=== PATIENT | male | born 1970 | race Caucasian/White ===

== ENCOUNTER 2018-03-16 15:23 | Observation (INO) | payer OTHER ==
[2018-03-16] MEDS ORDERED: NA CHLORIDE 0.9% 1,000 ML ONE ×2 (15:38→17:36)
[2018-03-16] MEDS ORDERED: ONDANSETRON 4 MG/2 ML VIAL ONE ×2 (15:38→19:57)
[2018-03-16] MEDS ORDERED: MORPHINE 4 MG/ML SYR ONE (15:38)
--- NOTE | 2018-03-16 16:13 | RAD REPORT ---
EXAM DESCRIPTION: CT - Stone Protocol - 03/16/2018 3:46 pm CLINICAL HISTORY: Left flank pain COMPARISON: None. TECHNIQUE: Axial 5 mm thick images were obtained without oral or IV contrast. The [id number] span s the entirety of the system including uppermost abdomen and lung bases. All CT scans are performed using dose optimization technique as appropriate and may include automated exposure control or mA/KV adjustment according to patient size. FINDINGS: Mild left-sided hydronephrosis is present secondary to a 5 mm mid left ureter stone. On a KUB projection the stone is the mid L4 level. More distally the left ureter is decompressed. No other obstructing or nonobstructing calculi. A 5.5 centimeter posterior mid left renal cyst is present. No suspicious renal masses. Isodense masses and pyelonephritis are not excluded on a stone protocol CT scan. No calculi within the contracted urinary bladder. Imaged portions of the liver, spleen and pancreas show no suspicious findings on non-contrast imaging . Liver shows a mild diffuse fatty infiltration pattern. At least 1 gallstone is present within a par tially contracted gallbladder. Active gallbladder process is not suspected. No biliary tree dilatatio n. Minimal fullness of the left adrenal gland is doubtful as being significant. No suspicious bowel findings. Minimal diverticulosis. No hernia, mass or bulky lymphadenopathy noted. No free air, free fluid or inflammatory stranding. No significant bony abnormality. IMPRESSION: Mild hydronephrosis secondary to a 5 mm left mid ureter calculus. Isodense masses and pyelonephritis are not excluded on stone protocol technique.
[2018-03-16 16:17] LABS: Absolute Lymphocytes (CBC) 1.2 K/uL (0.7-4.9); Absolute Monocytes 0.4 K/uL (0.1-1.3); Absolute Neutrophil 16.1 K/uL (1.8-8.0); Basophils % 0.3 % (0-1.3); Eosinophils % 0.1 % (0-4.4); Hematocrit 50.7 % (39.6-49.0); Lymphocytes % 6.9 % (15.3-44.8); MCH 32.3 pg (27.0-35.0); MCV 94.7 fL (80-100); MPV 8.3 fL (7.6-11.3); Monocytes % 2.2 % (3.3-12.3); RBC Red Blood Cell Count 5.35 M/uL (4.33-5.43)
[2018-03-16] MEDS ORDERED: FENTANYL CITR 100 MCG/2 ML ONE (16:21)
[2018-03-16 16:23] LABS: Bicarbonate 26 mEq/L (21-31); Glucose Level 180 mg/dL (65-120); Potassium 4.4 mEq/L (3.6-5.0); Sodium Level 142 mEq/L (135-145)
[2018-03-16 16:24] LABS: BUN Blood Urea Nitrogen 10 mg/dL (6-20)
--- NOTE | 2018-03-16 16:34 | EKG ---
Test Date: 2018-03-16 Test Time: 15:31:05 Shell Trim Operator: SHEBA MEASUREMENT RESULTS: Intervals: Rate: 74 MT: 130 QRSD: 90 QT: 380 QTc: 421 [place]: P: 25 MT: 130 QRS: 2 T: 27 INTERPRETIVE STATEMENTS: Normal sinus rhythm Low voltage QRS Borderline ECG Compared to ECG 04/08/2017 10:08:35 Myocardial infarct finding no longer present Electronically Signed On 03-16-18 16:33:24 CDT by Khurram Ramírez
[2018-03-16] MEDS ORDERED: CEFTRIAXONE/SWI 1gm 1 GM/10 ML SYR ONE (16:36)
--- NOTE | 2018-03-16 16:54 | EDPHYS ---
Physician Documentation [facility] Name: Isaiah Mcgraw Age: 47 yrs Sex: Male : 1970 Arrival Date: 03/16/2018 Time: 15:27 Bed 7 Private MD: ED Physician Farhad Ware HPI: 03/16 15:42 This 47 yrs old Male presents to ER via EMS with complaints of Flank Pain. kb 15:42 The patient complains of pain in the left flank. The pain radiates to the suprapubic kb area. Onset: The symptoms/episode began/occurred today, at 10:30. Modifying factors: The symptoms are alleviated by nothing. the symptoms are aggravated by palpation/percussion. Associated signs and symptoms: Pertinent positives: nausea, vomiting, Pertinent negatives: diarrhea, dizziness, dysuria, fever, urinary frequency, headache, hematuria, pain radiating to the lower extremities. Severity of pain: At its worst the pain was moderate in the emergency department the pain is unchanged. The patient has not experienced similar symptoms in the past. The patient has not recently seen a physician. Historical: - Allergies: 15:31 No Known Allergies; jl7 - Home Meds: 15:36 atorvastatin 40 mg oral tab 1 tab once daily [Active]; clopidogrel 75 mg oral tab 1 tab jl7 once daily [Active]; Invokana 100 mg oral tab 1 tab once daily [Active]; metoprolol tartrate 50 mg Oral tab 1 tab 2 times per day [Active]; metformin 500 mg Oral tab 2 tabs 2 times per day [Active]; 16:07 Lisinopril Oral [Active]; aspirin 81 mg oral TbEC once daily [Active]; jl7 - PMHx: 15:31 Diabetes - NIDDM; Hypertension; Hyperlipidemia; Myocardial infarction; jl7 - PSHx: 16:07 Heart Cath; jl7 - Immunization history:: Adult Immunizations up to date. - Social history:: Smoking status: Patient uses tobacco products, chewing tobacco. ROS: 15:42 Constitutional: Negative for fever, chills, and weight loss, Cardiovascular: Negative kb for chest pain, palpitations, and edema, Respiratory: Negative for shortness of breath, cough, wheezing, and pleuritic chest pain, MS/Extremity: Negative for injury and deformity, Skin: Negative for injury, rash, and discoloration, Neuro: Negative for headache, weakness, numbness, tingling, and seizure. 15:42 Abdomen/GI: Positive for nausea and vomiting. 15:42 : Positive for flank pain. Exam: 15:42 Constitutional: This is a well developed, well nourished patient who is awake, alert, kb and in no acute distress. Head/Face: Normocephalic, atraumatic. Chest/axilla: Normal chest wall appearance and motion. Nontender with no deformity. No lesions are appreciated. Cardiovascular: Regular rate and rhythm with a normal S1 and S2. No gallops, murmurs, or rubs. Normal PMI, no JVD. No pulse deficits. Respiratory: Lungs have equal breath sounds bilaterally, clear to auscultation and percussion. No rales, rhonchi or wheezes noted. No increased work of breathing, no retractions or nasal flaring. Skin: Warm, dry with normal turgor. Normal color with no rashes, no lesions, and no evidence of cellulitis. MS/ Extremity: Pulses equal, no cyanosis. Neurovascular intact. Full, normal range of motion. Neuro: Awake and alert, GCS 15, oriented to person, place, time, and situation. Cranial nerves II-XII grossly intact. Motor strength 5/5 in all extremities. Sensory grossly intact. Cerebellar exam normal. Normal gait. 15:42 Abdomen/GI: Inspection: abdomen appears normal, Bowel sounds: normal, in all quadrants, Palpation: soft, in all quadrants, mild abdominal tenderness, in the suprapubic area. 15:42 Back: CVA tenderness, that is moderate, is noted on the left. Vital Signs: 15:31 BP 126 / 79; Pulse 75; Resp 16 S; Temp 98.3(O); Pulse Ox 97% on R/A; Weight 111.13 kg jl7 (R); Height 5 ft. 9 in. (175.26 cm) (R); Pain 7/10; 16:08 BP 127 / 87; Pulse 79; Resp 16 S; Pulse Ox 97% on R/A; Pain 8/10; jl7 17:00 BP 124 / 85; Pulse 78; Resp 16; Pulse Ox 97% ; jl7 18:00 BP 123 / 83; Pulse 75; Resp 16; Pulse Ox 97% ; jl7 18:45 BP 119 / 75; Pulse 81; Resp 16; Pulse Ox 99% on R/A; jl7 19:43 BP 147 / 90; Pulse 84; Resp 17; Pulse Ox 99% on R/A; mt 15:31 Body Mass Index 36.18 (111.13 kg, 175.26 cm) jl7 MDM: 15:32 Patient medically screened. kb 15:42 Data reviewed: vital signs, nurses notes. Data interpreted: Pulse oximetry: on room air kb is 97 %. Interpretation: normal. 16:52 Counseling: I had a detailed discussion with the patient and/or guardian regarding: the kb historical points, exam findings, and any diagnostic results supporting the discharge/admit diagnosis, lab results, radiology results, the need for further work-up and treatment in the hospital. Physician consultation: Tova Fuentes MD was contacted at 16:53, regarding consult, patient's condition, and will see patient in inpatient room. 17:00 Physician consultation: Carolin Osuna MD was called at 17:00, left message. kb 03/16 15:36 Order name: CBC with Diff; Complete Time: 17:03 kb 03/16 15:36 Order name: Basic Metabolic Panel; Complete Time: 16:30 kb 03/16 15:36 Order name: Urine Microscopic Only; Complete Time: 17:13 kb 03/16 15:36 Order name: CT Stone Protocol; Complete Time: 16:14 kb 03/16 16:28 Order name: CBC Smear Scan; Complete Time: 17:03 EDMS 03/16 16:48 Order name: Urine Dipstick--Ancillary (enter results); Complete Time: 17:08 kb 03/16 16:54 Order name: Abdomen 1 View (KUB) XRAY kb 03/16 17:24 Order name: RAD; Complete Time: 17:25 EDMS 03/16 15:36 Order name: Urine Dipstick-Ancillary (obtain specimen); Complete Time: 18:46 kb 03/16 15:36 Order name: EKG; Complete Time: 15:36 kb 03/16 15:36 Order name: EKG - Nurse/Tech; Complete Time: 16:10 kb Administered Medications: 15:52 Drug: NS 0.9% 1000 ml Route: IV; Rate: 1000 ml; Site: right hand; 7 15:53 Drug: Zofran 4 mg Route: IVP; Site: right hand; jl7 16:10 Follow up: Response: Nausea is decreased jl7 15:55 Drug: morphine 4 mg Route: IVP; Site: right hand; jl7 16:10 Follow up: Response: No adverse reaction; Pain is unchanged, physician notified jl7 16:22 Drug: fentaNYL (PF) 50 mcg Route: IVP; Site: right hand; jl7 17:00 Follow up: Response: No adverse reaction; Pain is decreased jl7 16:40 Drug: Rocephin - (cefTRIAXone) 1 grams Route: IVPB; Infused Over: 2 mins; Site: right jl7 antecubital; 16:42 Follow up: Response: No adverse reaction; IV Status: Completed infusion jl7 18:30 Drug: NS 0.9% 1000 ml Route: IV; Rate: 125 ml/hr; Site: right hand; jl7 20:11 Follow up: IV Status: Infusion continued upon admission ea 20:11 Follow up: Response: No adverse reaction ea Disposition: 03/17 07:51 Co-signature as Attending Physician, Farhad Ware MD I agree with the assessment and mehrdad plan of care. Disposition: 03/16/18 17:22 Hospitalization ordered by Carolin Osuna for Observation. Preliminary diagnosis are Calculus of kidney and ureter, Elevated white blood cell count. - Bed requested for Telemetry/MedSurg (observation). - Status is Observation. ea - Condition is Stable. - Problem is new. - Symptoms are unchanged. UTI on Admission? No Signatures: Dispatcher [employer] EDNJ Alejandra Roach, AIR HOLE DRILLER-C AIR HOLE DRILLER-Farhad Jacobsen MD MD cha Leal, Jahala, RN GAURANG jlVanessa Vallecillo, RN Yas Cooper RN GAURANG morgan
--- NOTE | 2018-03-16 16:54 | ER ---
Nurse's Notes [facility] Name: Isaiah Mcgraw Age: 47 yrs Sex: Male : 1970 Arrival Date: 03/16/2018 Time: 15:27 Bed 7 Private MD: Diagnosis: Calculus of kidney and ureter;Elevated white blood cell count Presentation: 03/16 15:27 Presenting complaint: EMS states: C/O left flank pain that radiate to the groin and jl7 nausea. Pt reports he had a MO that started in the lower back and radiated substernal and to the left arm so we went ahead and gave 324 mg aspirin and 1 Nitro. Transition of care: patient was not received from another setting of care. Onset of symptoms was March 16, 2018. Initial Sepsis Screen: Does the patient meet any 2 criteria? No. Patient's initial sepsis screen is negative. Does the patient have a suspected source of infection? No. Patient's initial sepsis screen is negative. Care prior to arrival: Medication(s) given: ASA, 81 mg, x 4, Nitro x1 IV initiated. 20 GA, in the right hand. 15:27 Method Of Arrival: EMS: [facility] 15:27 Acuity: LASHELL 3 jl7 Triage Assessment: 15:31 General: Appears in no apparent distress. uncomfortable, Behavior is cooperative, jl7 anxious. Pain: Complains of pain in left low back Pain radiates to left lower quadrant Pain currently is 7 out of 10 on a pain scale. EENT: No signs and/or symptoms were reported regarding the EENT system. Neuro: Level of Consciousness is awake, alert, obeys commands, Oriented to person, place, time, situation. Cardiovascular: Heart tones S1 S2 present Patient's skin is warm and dry. Respiratory: Airway is patent Respiratory effort is even, unlabored, Respiratory pattern is regular, symmetrical, Breath sounds are clear bilaterally. GI: Abdomen is round non-distended, Bowel sounds present X 4 quads. Abd is soft and non tender X 4 quads. : Denies burning with urination. Derm: Skin is pink, warm \\T\\ dry. Musculoskeletal: No signs and/or symptoms reported regarding the musculoskeletal system. Historical: - Allergies: 15:31 No Known Allergies; jl7 - Home Meds: 15:36 atorvastatin 40 mg oral tab 1 tab once daily [Active]; clopidogrel 75 mg oral tab 1 tab jl7 once daily [Active]; Invokana 100 mg oral tab 1 tab once daily [Active]; metoprolol tartrate 50 mg Oral tab 1 tab 2 times per day [Active]; metformin 500 mg Oral tab 2 tabs 2 times per day [Active]; 16:07 Lisinopril Oral [Active]; aspirin 81 mg oral TbEC once daily [Active]; jl7 - PMHx: 15:31 Diabetes - NIDDM; Hypertension; Hyperlipidemia; Myocardial infarction; jl7 - PSHx: 16:07 Heart Cath; jl7 - Immunization history:: Adult Immunizations up to date. - Social history:: Smoking status: Patient uses tobacco products, chewing tobacco. Screenin:09 Abuse screen: Denies threats or abuse. Denies injuries from another. Nutritional jl7 screening: No deficits noted. Tuberculosis screening: No symptoms or risk factors identified. Fall Risk IV access (20 points). Total Yoon Fall Scale indicates No Risk (0-24 pts). Assessment: 15:30 General: See triage assessment. jl7 16:10 Reassessment: Pt reports "It still hurts the same." Provider notified, see [facility] for jl7 orders. 17:00 Reassessment: No changes from previously documented assessment. Patient and/or family jl7 updated on plan of care and expected duration. Pain level reassessed. Patient is alert, oriented x 3, equal unlabored respirations, skin warm/dry/pink. 19:29 General: Appears in no apparent distress. Behavior is calm, cooperative, appropriate ea for age. Pain: Denies pain. Neuro: Level of Consciousness is awake, alert, obeys commands, Oriented to person, place, time, situation. Cardiovascular: Patient's skin is warm and dry. Respiratory: Airway is patent Respiratory effort is even, unlabored, Respiratory pattern is regular, symmetrical. GI: Bowel sounds present X 4 quads. : No signs and/or symptoms were reported regarding the genitourinary system. Derm: Skin is pink, warm \\T\\ dry. 20:02 Reassessment: Patient and/or family updated on plan of care and expected duration. Pain ea level reassessed. Patient is alert, oriented x 3, equal unlabored respirations, skin warm/dry/pink. Pt complaining of nausea, zofran 4 mg per IV given pt tolerated well documentation in [facility]. Vital Signs: 15:31 BP 126 / 79; Pulse 75; Resp 16 S; Temp 98.3(O); Pulse Ox 97% on R/A; Weight 111.13 kg jl7 (R); Height 5 ft. 9 in. (175.26 cm) (R); Pain 7/10; 16:08 BP 127 / 87; Pulse 79; Resp 16 S; Pulse Ox 97% on R/A; Pain 8/10; jl7 17:00 BP 124 / 85; Pulse 78; Resp 16; Pulse Ox 97% ; jl7 18:00 BP 123 / 83; Pulse 75; Resp 16; Pulse Ox 97% ; jl7 18:45 BP 119 / 75; Pulse 81; Resp 16; Pulse Ox 99% on R/A; jl7 19:43 BP 147 / 90; Pulse 84; Resp 17; Pulse Ox 99% on R/A; mt 15:31 Body Mass Index 36.18 (111.13 kg, 175.26 cm) 7 ED Course: 15:27 Patient arrived in ED. jl7 15:30 Triage completed. jl7 15:30 Maintain EMS IV. Dressing intact. Good blood return noted. Site clean \\T\\ dry. Gauge \\T\\ jl 7 site: 20 right hand. 15:31 Alejandra Roach F[facility]-C [facility] kb 15:31 Arm band placed on right wrist. jl7 15:32 Farhad Ware MD is Attending Physician. kb 15:37 Eber Espinosa RN is Primary Nurse. jl7 15:40 Initial lab(s) drawn, by ms, sent to lab. jl7 15:46 CT Stone Protocol In Process Unspecified. EDMS 15:46 CT completed. Patient tolerated procedure well. Patient moved back from CT. vm2 15:51 EKG done, by engineering technical writer. reviewed by Alejandra GALDAMEZ. at1 16:09 Patient has correct armband on for positive identification. Bed in low position. Call [facility] light in reach. Side rails up X 1. quality assurance monitor on. Pulse ox on. NIBP on. Warm blanket given. 16:53 Carolin Osuna MD is Hospitalizing Provider. kb 17:12 X-ray completed. Patient tolerated procedure well. Patient moved back from radiology. ml 17:22 Osuna, Carolin, MD is Hospitalizing Provider. kb 19:08 Report given to GAURANG Rowley. jl7 19:31 No provider procedures requiring assistance completed. ea 20:02 Patient admitted, IV remains in place. ea Administered Medications: 15:52 Drug: NS 0.9% 1000 ml Route: IV; Rate: 1000 ml; Site: right hand; jl7 15:53 Drug: Zofran 4 mg Route: IVP; Site: right hand; jl7 16:10 Follow up: Response: Nausea is decreased jl7 15:55 Drug: morphine 4 mg Route: IVP; Site: right hand; jl7 16:10 Follow up: Response: No adverse reaction; Pain is unchanged, physician notified jl7 16:22 Drug: fentaNYL (PF) 50 mcg Route: IVP; Site: right hand; jl7 17:00 Follow up: Response: No adverse reaction; Pain is decreased jl7 16:40 Drug: Rocephin - (cefTRIAXone) 1 grams Route: IVPB; Infused Over: 2 mins; Site: right jl7 antecubital; 16:42 Follow up: Response: No adverse reaction; IV Status: Completed infusion jl7 18:30 Drug: NS 0.9% 1000 ml Route: IV; Rate: 125 ml/hr; Site: right hand; jl7 20:11 Follow up: IV Status: Infusion continued upon admission ea 20:11 Follow up: Response: No adverse reaction ea Outcome: 16:54 Decision to Hospitalize by Provider. kb 17:22 Decision to Hospitalize by Provider. kb 20:01 Admitted to Med/surg accompanied by tech, via wheelchair, room 205, Report called to ea Receiving nurse. 20:01 Condition: stable 20:01 Instructed on the need for admit. 20:10 Patient left the ED. ea Signatures: Dispatcher [employer] EDMS Alejandra Roach, DENICE PHARMACOEPIDEMIOLOGIST-Irina Lira Amanda, scraper loader operator EKG Andrez1 Eber Espinosa, RN RN jl7 Alexa Root 2 Mateus Ariasah Yas Gates, RN RN cathy
[2018-03-16 17:02] LABS: Platelet Estimate ADEQ; Urine White Blood Cell Casts OK
[2018-03-16 17:03] LABS: Blood Morphology Comment NOT SEEN (NOT SEEN)
[2018-03-16 17:03] LABS: Urine Blood 3+ (NEG); Urine Glucose 2+ (NEG); Urine Protein 3+ (NEG); Urine pH 5.5 (5.0-7.0)
[2018-03-16 17:13] LABS: Urine Bacteria 20-50 /HPF (NONE SEEN); Urine Culture Reflex Order REFLEXED; Urine RBC TNTC /HPF (NONE SEEN)
--- NOTE | 2018-03-16 17:24 | RAD REPORT ---
EXAM DESCRIPTION: RAD - Abdomen 1 View (KUB) - 03/16/2018 5:17 pm CLINICAL HISTORY: Abdomen pain. FINDINGS: The bowel gas pattern is unremarkable. A 3 millimeter calculus is present within the left ureter between the left transverse processes of L4 and L5 The calcification the pelvis likely represent phleboliths and prostatic calcifications
[2018-03-16] MEDS ORDERED: ONDANSETRON 4 MG/2 ML VIAL IV PRN (17:47)
[2018-03-16] MEDS ORDERED: ACETAMINOPHEN 500 MG TAB PO PRN (17:47)
[2018-03-16] MEDS ORDERED: NA CHLORIDE 0.9% 1,000 ML IV SCH (18:00)
[2018-03-16] MEDS: NA CHLORIDE 0.9% 1,000 ML IV SCH (20:29)
[2018-03-16] MEDS ORDERED: FENTANYL CITR 100 MCG/2 ML IV PRN (20:29)
[2018-03-16 21:19] VITALS: BMI 38.1
[2018-03-16] MEDS ORDERED: NA CHLORIDE 0.9% 1,000 ML IV ONE (22:02)
[2018-03-16] MEDS ORDERED: HYDROCODONE/APAP 10/325 TAB PO ONE (22:06)
[2018-03-16] MEDS: ONDANSETRON 4 MG/2 ML VIAL IV PRN (22:54)
[2018-03-17] MEDS: FENTANYL CITR 100 MCG/2 ML IV PRN ×5 (01:42→18:55)
[2018-03-17] MEDS: NA CHLORIDE 0.9% 1,000 ML IV SCH ×3 (04:51→20:29)
--- NOTE | 2018-03-17 05:26 | P.HP ---
Certification for Inpatient Patient admitted to: Observation With expected LOS: <2 Midnights Patient will require the following post-hospital care: None Practitioner: I am a practitioner with admitting privileges, knowledge of patient current condition, hospital course, and medical plan of care. 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 He suddenly experienced sharp pain to his left flank. He thought the pain would improve any stopped at a local gas station and got peppermint for nausea as he experienced vomiting on his drive to the gas station. 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 In the emergency room, patient's workup revealed left-sided nephrolithiasis with mild hydronephrosis on the left. Patient was admitted to the hospital for pain control and hydration. Urology has been Consulted. Allergies No Known Allergies Allergy (Verified 03/16/18 21:17) Home Medications: Aspirin [Aspir-Low] 81 mg PO DAILY 04/08/17 Atorvastatin Calcium [Lipitor] 40 mg PO BEDTIME 04/08/17 Canagliflozin [Invokana] 100 mg PO DAILY 04/08/17 Clopidogrel Bisulfate [Plavix] 75 mg PO DAILY 04/08/17 Lisinopril [Zestril] 20 mg PO DAILY 04/08/17 Metformin HCl [Glucophage] 500 mg PO BID 04/08/17 Metoprolol Tartrate 50 mg PO BID 04/08/17 - Past Medical/Surgical History Has patient received pneumonia vaccine in the past: No Diabetic: No -: Diabetes type 2 -: Hypertension -: CAD -: heart catheterization -: cyst removed from the right leg - Family History Mother Medical History: Heart disease, Hypertension, Diabetes, Kidney disease, Other ( see notes) Notes: thyroid disease Father Medical History: Heart disease, Stroke, Cancer Notes: AMYLOIDOSIS - Social History Smoking Status: Never smoker Alcohol use: Yes CD- Drugs: No Caffeine use: Yes Place of Residence: Home Review of Systems 10-point ROS is otherwise unremarkable Physical Examination - Vital Signs Temperature: 99.0 F Blood Pressure: 130/75 Pulse: 94 Respirations: 18 Pulse Ox (%): 95 - Physical Exam General: Alert, In no apparent distress, Oriented x3 HEENT: Atraumatic, PERRLA, Mucous membr. moist/pink, EOMI, Sclerae nonicteric Neck: Supple, 2+ carotid pulse no bruit, No LAD, Without JVD or thyroid abnormality Respiratory: Expiratory wheezes, Rhonchi/gurgles Cardiovascular: Regular rate/rhythm, Normal S1 S2, No murmurs Gastrointestinal: Normal bowel sounds, Soft and benign, Non-distended, No tenderness Musculoskeletal: No clubbing, No swelling, No tenderness Integumentary: No rashes Neurological: Normal gait, Normal speech, Normal strength at 5/5 x4 extr, Normal tone, Sensation intact, Cranial nerves 3-12 intact, Normal affect Lymphatics: No axilla or inguinal lymphadenopathy - Studies Laboratory Data (last 24 hrs) 03/16/18 15:55: Sodium 142, Potassium 4.4, BUN 10, Creatinine 0.71, Glucose 180 H 03/16/18 15:55: WBC 17.8 H, Hgb 17.3, Hct 50.7 H, Plt Count 274 Assessment & Plan - Problems (Diagnosis) (1) Nephrolithiasis Current Visit: Yes Status: Acute (2) Hydronephrosis Current Visit: Yes Status: Acute (3) Urinary tract infection Current Visit: Yes Status: Acute - Plan Plan: 1. Continue with IV hydration 2. Continue with IV antibiotics 3. Continue with pain control 4. NPO 5. Urology consultation; 6. Serial H&H, and we will monitor CBC, BMP, & additional laboratory testing. 7. Strain urine 8. GI and DVT prophylaxis - Advance Directives Does patient have a Living Will: No Does patient have a Durable POA for Healthcare: No - Code Status/Comfort Care Code Status Assessed: Yes Code Status: Full Code Critical Care: No Time Spent Managing PTS Care (In Minutes): 50
[2018-03-17 06:00] LABS: Absolute Lymphocytes (CBC) 3.6 K/uL (0.7-4.9); Absolute Monocytes 1.3 K/uL (0.1-1.3); Absolute Neutrophil 10.5 K/uL (1.8-8.0); Basophils % 0.8 % (0-1.3); Eosinophils % 0.3 % (0-4.4); Hematocrit 45.8 % (39.6-49.0); Lymphocytes % 23.2 % (15.3-44.8); MCH 31.9 pg (27.0-35.0); MCV 94.8 fL (80-100); Monocytes % 8.5 % (3.3-12.3); RBC Red Blood Cell Count 4.83 M/uL (4.33-5.43)
[2018-03-17 07:06] LABS: ALT/SGPT 25 IU/L (10-60); AST/SGOT 21 IU/L (10-42); Albumin 3.6 g/dL (3.2-5.5); Alkaline Phosphatase 65 IU/L (42-121); BUN Blood Urea Nitrogen 11 mg/dL (6-20); Bicarbonate 25 mEq/L (21-31); Glucose Level 122 mg/dL (65-120); Lipase 15 U/L (22-51); Magnesium 1.5 mg/dL (1.8-2.5); Phosphorus 2.9 mg/dL (2.5-4.3); Potassium 3.9 mEq/L (3.6-5.0); Protein, Total 6.5 g/dL (6.0-8.3); Sodium Level 139 mEq/L (135-145)
[2018-03-17] MEDS ORDERED: KCL 20 MEQ/100 mL IVPB 20 MEQ/100 ML BAG IV SCH (08:00)
[2018-03-17] MEDS ORDERED: Magnesium Sulfate 2gm IVPB 2 G/50 ML BAG IV ONE (09:00)
[2018-03-17] MEDS ORDERED: CEFTRIAXONE 1 GM/NS 50 ML 1 GM/50 ML BAG IV SCH (09:00)
[2018-03-17 09:22] LABS: Protime INR 1.09
[2018-03-17] MEDS: LISINOPRIL 20 MG TAB PO SCH (09:46)
[2018-03-17] MEDS: METOPROLOL TAR 50 MG TAB PO SCH ×2 (09:46→21:00)
[2018-03-17] MEDS: CEFTRIAXONE/SWI 1gm 1 GM/10 ML SYR IV SCH (09:47)
[2018-03-17] MEDS ORDERED: MIDAZOLAM HCL 2 MG/2 ML INJ ONE ×2 (12:45→12:56)
[2018-03-17] MEDS ORDERED: FENTANYL CITR 100 MCG/2 ML ONE (12:45)
[2018-03-17] MEDS ORDERED: PROPOFOL 200 MG/20 ML VIAL IV ONE (12:45)
[2018-03-17] MEDS ORDERED: LIDOCAINE 1% MPF 5 ML VIAL ONE (12:45)
[2018-03-17] MEDS ORDERED: GENTAMICIN 80 MG/100 ML BAG 80 MG/100 ML BAG IV ONE (13:08)
[2018-03-17] MEDS ORDERED: NA CHLORIDE 0.9% 1,000 ML ONE (13:08)
[2018-03-17] MEDS ORDERED: ONDANSETRON 4 MG/2 ML VIAL ONE (13:21)
[2018-03-17] MEDS ORDERED: KETOROLAC 30 MG/ML INJ ONE (13:21)
--- NOTE | 2018-03-17 14:56 | RAD REPORT ---
EXAM DESCRIPTION: RAD - Urethrocystogrphy Retrograde - 03/17/2018 2:50 pm CLINICAL HISTORY: Stent placement. COMPARISON: None. FINDINGS: Fluoroscopic imaging of the abdomen is submitted from left-sided ureter stent placement. D etails of the procedure not available.
[2018-03-17] MEDS: ONDANSETRON 4 MG/2 ML VIAL IV PRN ×2 (15:25→21:06)
[2018-03-17] MEDS ORDERED: KETOROLAC 30 MG/ML INJ IV ONE (17:00)
--- NOTE | 2018-03-17 18:13 | P.SSS ---
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 He suddenly experienced sharp pain to his left flank. He thought the pain would improve any stopped at a local gas station and got peppermint for nausea as he experienced vomiting on his drive to the gas station. 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 In the emergency room, patient's workup revealed left-sided nephrolithiasis with mild hydronephrosis on the left. Patient was admitted to the hospital for pain control and hydration. Urology has been Consulted. Allergies No Known Allergies Allergy (Verified 03/16/18 21:17) Home Medications: Aspirin [Aspir-Low] 81 mg PO DAILY 04/08/17 Atorvastatin Calcium [Lipitor] 40 mg PO BEDTIME 04/08/17 Canagliflozin [Invokana] 100 mg PO DAILY 04/08/17 Clopidogrel Bisulfate [Plavix] 75 mg PO DAILY 04/08/17 Lisinopril [Zestril] 20 mg PO DAILY 04/08/17 Metformin HCl [Glucophage*] 500 mg PO BID 04/08/17 Metoprolol Tartrate 50 mg PO BID 04/08/17 - Past Medical/Surgical History Has patient received pneumonia vaccine in the past: No Diabetic: No -: Diabetes type 2 -: Hypertension -: CAD -: heart catheterization -: cyst removed from the right leg - Family History Mother -: Heart disease, Hypertension, Diabetes, Kidney disease, Other (see notes) Notes: thyroid disease Father -: Heart disease, Stroke, Cancer Notes: AMYLOIDOSIS - Social History Smoking Status: Never smoker Alcohol use: Yes CD- Drugs: No Caffeine use: Yes Place of Residence: Home Review of Systems 10-point ROS is otherwise unremarkable Physical Examination - Vital Signs Temperature: 97.3 F Blood Pressure: 114/73 Pulse: 59 Respirations: 18 Pulse Ox (%): 94 - Physical Exam General: Alert, In no apparent distress, Oriented x3 HEENT: Atraumatic, PERRLA, Mucous membr. moist/pink, EOMI, Sclerae nonicteric Neck: Supple, 2+ carotid pulse no bruit, No LAD, Without JVD or thyroid abnormality Respiratory: Clear to auscultation bilaterally, Normal air movement Cardiovascular: Regular rate/rhythm, Normal S1 S2 Gastrointestinal: Normal bowel sounds, No tenderness Musculoskeletal: No tenderness Integumentary: No rashes Neurological: Normal gait, Normal speech, Normal strength at 5/5 x4 extr, Normal tone, Normal affect Lymphatics: No axilla or inguinal lymphadenopathy - Diagnosis (Problem(s)) (1) Calculus of kidney and ureter Onset Date: 03/17/18 Current Visit: Yes Status: Acute Plan: Urology Consulted. Appreciate Reccs -S/P Left stent Placement Cystocopy -DC home now with pain mgmt and Antibitoics -Lithotripsy in office if needed 1 week post stop plavix. (2) Hydronephrosis Onset Date: 03/17/18 Current Visit: Yes Status: Acute Qualifiers: Hydronephrosis type: with renal calculous obstruction Qualified Code(s): N13.2 - Hydronephrosis with renal and ureteral calculous obstruction (3) Nephrolithiasis Onset Date: 03/17/18 Current Visit: Yes Status: Acute (4) Urinary tract infection Onset Date: 03/17/18 Current Visit: Yes Status: Resolved Qualifiers: Urinary tract infection type: acute cystitis Hematuria presence: without hematuria Qualified Code(s): N30.00 - Acute cystitis without hematuria - Disposition Disposition: ROUTINE DISCHARGE Condition: GOOD Diet: Regular Activity: Ad aleah
[2018-03-17] MEDS ORDERED: TAMSULOSIN 0.4 MG SR CAP PO ONE (18:30)
[2018-03-17] MEDS ORDERED: Morphine 2 MG/2 ML SYR IV PRN (18:58)
[2018-03-17] MEDS: TRAMADOL HCL 50 MG TAB PO PRN (23:30)
[2018-03-18 00:26] VITALS: O2SAT 96
--- NOTE | 2018-03-18 00:27 | CON ---
Date of Consultation: 03/17/2018 The patient admitted on 03/16/2018. I saw the patient on 03/17/2018. Reason For Consultation: Cardiac clearance for nephrolithiasis. History Of Present Illness: The patient is a 47-year-old white male. He is very well known to me fr om previous office visits and admission. He has a history of diabetes, hypertension, dyslipidemia. He is status post angioplasty and stent few years ago, I believe in 2014. Had a normal stress test i n 2017, has no cardiac symptoms, came in with nephrolithiasis. There was some concern about doing a lithotripsy because of his Plavix and aspirin therapy. I was consulted because I think there is a pl an for a stent to relieve his nephrolithiasis by Dr. Fuentes. Past Medical History: As stated above. Allergies: NONE. Review of Systems: Negative. Social History: Negative. Family History: Negative. Medications: At home include Invokana, aspirin, metformin, lisinopril, Plavix, Lipitor, and metoprol ol. Physical Examination: Vital Signs: Stable. He was afebrile. HEENT: Negative. Neck: Supple with no bruit. Chest: Clear. Cardiac: Revealed a regular rhythm and rate without any murmurs, gallops, or rubs. Abdomen: Benign. Extremities: Revealed no clubbing, cyanosis, or edema. His EKG is normal. Chest x-ray is normal. Blood work is normal, except for high white count. Impression And Plan: 1.Stable coronary artery disease, status post percutaneous coronary intervention and stent in 2014. Negative stress test in 2016. The patient is cleared for urological procedures. He can stop his as pirin and Plavix for a week without any problems and I asked him to stop his Plavix permanently and c ontinue his aspirin eventually. 2.Hypertension, stable. 3.Diabetes, well controlled. 4.Dyslipidemia, well controlled. 5.I will be available for questions if the need arise. LEVY/PARISH Voice ID: [id number] Report ID: [id number]
[2018-03-18 05:44] LABS: BUN Blood Urea Nitrogen 16 mg/dL (6-20); Bicarbonate 25 mEq/L (21-31); Glucose Level 133 mg/dL (65-120); Potassium 4.2 mEq/L (3.6-5.0); Sodium Level 139 mEq/L (135-145)
[2018-03-18] MEDS: NA CHLORIDE 0.9% 1,000 ML IV SCH (05:58)
[2018-03-18] MEDS: TRAMADOL HCL 50 MG TAB PO PRN ×2 (05:58→12:14)
[2018-03-18] MEDS ORDERED: TAMSULOSIN 0.4 MG SR CAP PO SCH (09:00)
[2018-03-18] MEDS: LISINOPRIL 20 MG TAB PO SCH (10:03)
[2018-03-18] MEDS: CEFTRIAXONE/SWI 1gm 1 GM/10 ML SYR IV SCH (10:05)
[2018-03-18] MEDS: METOPROLOL TAR 50 MG TAB PO SCH (10:05)
[2018-03-18 13:40] VITALS: BP 134/81; TEMP 97.1
--- NOTE | 2018-03-19 11:57 | CON ---
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 The patient is on aspirin. Plavix, last took a day ago. Therefore, he is not a candidate for an ESWL. He has been on pain medication around the clock, both fentanyl and [place], so the best thing for him would be a double-J stent at this time, hold the aspirin now and then all the Plavix 3 days prior to ESWL next Friday. We will consult Dr. Ornelas, clinical investigator for clearance. Allergies: NO KNOWN DRUG ALLERGIES. Home Medications: Aspirin, Lipitor, Invokana, Plavix, Restoril, Glucophage, metoprolol. Past Medical History And Surgical History: Diabetes type 2, hypertension, coronary artery disease, heart catheterization, cyst removed from right leg. Family History: Mother had heart disease, hypertension, diabetes. Father also had heart disease, at very young age, stroke and cancer and amyloidosis. Social History: Smoking history, never smoked. Some alcohol use. No drugs. Some caffeine use. Resides at home. Review of Systems: A 10-point review of systems unremarkable. Physical Examination: Vital Signs: The patient was afebrile and stable. HEENT: Atraumatic and normocephalic. Lungs: Clear. Heart: Regular S1S2. Abdomen: Soft, NON tender, Flank: slight tenderness on the left side. Right side benign. : Phallus circumcised. No lesions. Both testicles are descended, normal, nontender. No masses. Extremities: Normal range of motion. Laboratory Data: The patient's laboratories show white count was elevated at 17.8 on admission and now 15.6, H and H are 15 and 45, platelet count 240. Chemistry shows sodium _, potassium 3.9, chloride 109, carbon dioxide 25, BUN 11 , creatinine 0.76, GFR greater than 90, glucose 122, calcium 8.7, magnesium 1.5 slightly low. Coags pending. Urine shows pH 5.5, specific gravity 1.030, blood 3+, nitrite negative, esterase negative, rbc's too numerous to count. Assessment: A 5 mm stone to the left L3-L4. Plan: Plan for cysto, stent, pain medication. He is not able to tolerate pain medication. He is not a candidate for an ESWL due to coagulopathy at this time. We will keep him n.p.o., get informed consent, consult Dr. Tomas, his clinical investigator for clearance. TENZIN/PARISH Voice ID: [id number] Report ID: [id number] MTDD
== END 2018-03-18 13:25 | disposition home or self-care (01) ==
LOC: ER 15:23 → ERHOLD 16:55 → 2ND 19:38
PROVIDERS: ADMIT Family Medicine; ATTEND Hospitalist
PROC: 0WHR8YZ Insertion of Other Device into Genitourinary Tract, Via Natural or Artificial Opening Endoscopic (ICD-10-PCS; 2018-03-17)
PROC: 0T9680Z Drainage of Right Ureter with Drainage Device, Via Natural or Artificial Opening Endoscopic (ICD-10-PCS; principal; 2018-03-17 15:45)
DX: N13.2 Hydronephrosis with renal and ureteral calculous obstruction (principal); N30.00 Acute cystitis without hematuria; E11.9 Type 2 diabetes mellitus without complications; I25.10 Atherosclerotic heart disease of native coronary artery without angina pectoris; I10 Essential (primary) hypertension; Z95.5 Presence of coronary angioplasty implant and graft; Z79.82 Long term (current) use of aspirin
CPT/HCPCS: 36415; 51610; 74018; 74176; 74450; 76377; 80048; 80053; 81003; 81015; 82962; 83690; 83735; 84100; 85025; 85610; 85730; 87086; 87088; 93005; 99285; G0378; J0696; J1580; J2250; J2405; J3010; J3475; J7030; Q9967

== ENCOUNTER 2018-03-24 08:22 | Day surgery (SDC) | payer OTHER ==
[2018-03-24] MEDS ORDERED: GENTAMICIN 80 MG/100 ML BAG 80 MG/100 ML BAG IV ONE (08:36)
[2018-03-24] MEDS ORDERED: NA CHLORIDE 0.9% 1,000 ML ONE ×3 (08:36→14:22)
[2018-03-24 08:47] LABS: Urine Appearance CLEAR; Urine Bilirubin NEGATIVE (NEG); Urine Blood 3+ (NEG); Urine Color YELLOW; Urine Glucose 3+ (NEG); Urine Protein 1+ (NEG); Urine Specific Gravity 1.025 (1.005-1.030); Urine Urobilinogen 0.2 mg/dL (0.2-1.0); Urine pH 5.5 (5.0-7.0)
[2018-03-24 08:50] LABS: Urine Microscopic Reflex ORDER UMIC
[2018-03-24 08:52] LABS: Absolute Lymphocytes (CBC) 2.4 K/uL (0.7-4.9); Absolute Monocytes 0.7 K/uL (0.1-1.3); Basophils % 0.6 % (0-1.3); Eosinophils % 2.7 % (0-4.4); Hematocrit 49.6 % (39.6-49.0); Lymphocytes % 22.5 % (15.3-44.8); MCH 32.2 pg (27.0-35.0); MCV 94.8 fL (80-100); MPV 8.1 fL (7.6-11.3); Monocytes % 6.7 % (3.3-12.3); Protime INR 0.93; RBC Red Blood Cell Count 5.23 M/uL (4.33-5.43)
[2018-03-24 08:58] LABS: Urine Bacteria NONE SEEN /HPF (NONE SEEN); Urine Culture Reflex Order NOT NEEDED; Urine RBC >50 /HPF (NONE SEEN)
[2018-03-24 09:15] LABS: BUN Blood Urea Nitrogen 9 mg/dL (6-20); Bicarbonate 29 mEq/L (21-31); Glucose Level 105 mg/dL (65-120); Phosphorus 4.1 mg/dL (2.5-4.3); Potassium 4.2 mEq/L (3.6-5.0); Sodium Level 141 mEq/L (135-145); Uric Acid 6.2 mg/dL (4.8-8.7)
[2018-03-24] MEDS ORDERED: MIDAZOLAM HCL 2 MG/2 ML INJ ONE (09:27)
[2018-03-24] MEDS ORDERED: FENTANYL CITR 100 MCG/2 ML ONE (09:27)
[2018-03-24] MEDS ORDERED: PROPOFOL 200 MG/20 ML VIAL IV ONE (09:27)
[2018-03-24] MEDS ORDERED: LIDOCAINE 2% MPF 5 ML VIAL ONE (09:27)
--- NOTE | 2018-03-24 09:59 | RAD REPORT ---
EXAM DESCRIPTION: RAD - Chest Pa And Lat (2 Views) - 03/24/2018 8:53 am CLINICAL HISTORY: Preop chest, kidney stone treatment pending COMPARISON: March 2017 TECHNIQUE: PA and lateral views of the chest were obtained. FINDINGS: The lungs are clear. Lung markings are similar to the comparison. Heart size is normal an d central vasculature is within normal limits. No pleural effusion or pneumothorax seen. No acute b jerilyn finding noted. No aortic abnormality. IMPRESSION: No acute cardiopulmonary process. No significant change from comparison.
[2018-03-24] MEDS ORDERED: GLYCOPYRROLATE 0.2 MG/ML SYR ONE (10:40)
[2018-03-24] MEDS ORDERED: NS 0.9% VIAL 10 ML ONE (11:01)
--- NOTE | 2018-03-24 11:12 | RAD REPORT ---
EXAM DESCRIPTION: RAD - Urethrocystogrphy Retrograde - 03/24/2018 11:06 am FINDINGS: Single image is available showing pigtail stent in the left collecting system. Image quali ty is not sufficient to evaluate for any stones along the course of the ureter.
[2018-03-24] MEDS ORDERED: Phenylephrine HCl 10 MG/ML 1 ML VIAL ONE (11:21)
[2018-03-24] MEDS ORDERED: KETOROLAC 30 MG/ML INJ ONE (11:29)
[2018-03-24] MEDS ORDERED: Mastisol Adhesive Liq ONE (11:53)
[2018-03-24] MEDS ORDERED: TRAMADOL HCL 50 MG TAB ONE (13:38)
[2018-03-24] MEDS ORDERED: TAMSULOSIN 0.4 MG SR CAP PO ONE (14:00)
[2018-03-24 14:03] VITALS: BP 147/81; TEMP 96.9; O2SAT 98
--- NOTE | 2018-03-24 14:37 | EKG ---
Test Date: 2018-03-24 Test Time: 08:45:11 Functional Support Analyst: PHILLIP MEASUREMENT RESULTS: Intervals: Rate: 82 WI: 130 QRSD: 88 QT: 374 QTc: 436 [place]: P: 25 WI: 130 QRS: -12 T: 4 INTERPRETIVE STATEMENTS: Normal sinus rhythm Low voltage QRS Nonspecific T wave abnormality Abnormal ECG Compared to ECG 03/16/2018 15:31:05 T-wave abnormality now present Electronically Signed On 03-24-18 14:34:05 CDT by Kehinde Tomas
== END 2018-03-24 14:57 | disposition home or self-care (01) ==
LOC: OR 08:22
PROVIDERS: ATTEND Urology
PROC: 0WHR8YZ Insertion of Other Device into Genitourinary Tract, Via Natural or Artificial Opening Endoscopic (ICD-10-PCS; 2018-03-24)
PROC: 0TF4XZZ Fragmentation in Left Kidney Pelvis, External Approach (ICD-10-PCS; principal; 2018-03-24 10:00)
PROC: 0T778DZ Dilation of Left Ureter with Intraluminal Device, Via Natural or Artificial Opening Endoscopic (ICD-10-PCS; 2018-03-24 10:00)
DX: N20.2 Calculus of kidney with calculus of ureter (principal); Q62.39 Other obstructive defects of renal pelvis and ureter; E11.9 Type 2 diabetes mellitus without complications; I10 Essential (primary) hypertension; E78.00 Pure hypercholesterolemia, unspecified; G47.33 Obstructive sleep apnea (adult) (pediatric); F17.220 Nicotine dependence, chewing tobacco, uncomplicated; Z82.3 Family history of stroke; Z83.3 Family history of diabetes mellitus; Z82.49 Family history of ischemic heart disease and other diseases of the circulatory system
CPT/HCPCS: 36415; 51610; 71046; 74450; 80048; 81003; 81015; 82962; 84100; 84550; 85025; 85610; 85730; 87086; 87088; 93005; J1580; J2250; J2370; J3010; J7030; Q9967

== ENCOUNTER 2018-10-13 09:24 | Day surgery (SDC) | payer OTHER ==
[2018-10-13] MEDS ORDERED: NA CHLORIDE 0.9% 1,000 ML ONE (10:02)
[2018-10-13] MEDS ORDERED: PROPOFOL 200 MG/20 ML VIAL IV ONE (10:17)
[2018-10-13] MEDS ORDERED: MIDAZOLAM HCL 2 MG/2 ML INJ ONE (10:18)
[2018-10-13] MEDS ORDERED: LIDOCAINE 2% MPF 5 ML VIAL ONE (10:18)
[2018-10-13] MEDS ORDERED: FENTANYL CITR 100 MCG/2 ML ONE (10:18)
[2018-10-13] MEDS ORDERED: CEFAZOLIN/SWI 1gm 1 GM/10 ML SYR ONE (10:54)
[2018-10-13] MEDS ORDERED: KETOROLAC 30 MG/ML INJ ONE (11:22)
--- NOTE | 2018-10-13 11:24 | P.BOP ---
Preoperative diagnosis: perineal abscess Postoperative diagnosis: perineal complex abscess Primary procedure: Incision and drainage of perineal complex [id number] cm Estimated blood loss: <20cc Specimen: pus culture and abscess bx Findings: abscess with multiple loculations tunnels anterior Anesthesia: General Complications: None Transferred to: Recovery Room Condition: Good
[2018-10-13 12:37] VITALS: BP 94/55; TEMP 96.1; O2SAT 100
--- NOTE | 2018-10-14 10:30 | EKG ---
Test Date: 2018-10-13 Test Time: 09:19:13 Supervisor Machine Setter: JED MEASUREMENT RESULTS: Intervals: Rate: 66 TN: 134 QRSD: 94 QT: 390 QTc: 408 [place]: P: 27 TN: 134 QRS: -3 T: 2 INTERPRETIVE STATEMENTS: Normal sinus rhythm Low voltage QRS Borderline ECG Compared to ECG 03/24/2018 08:45:11 T-wave abnormality no longer present Electronically Signed On 10-14-18 10:29:25 EXPORT MANAGER by Khurram Ramírez
--- NOTE | 2018-10-27 00:10 | DS ---
Surgeon: Neto Wilson MD Diagnosis: Perineal complex abscess. Procedure: Incision and drainage of perineal complex abscess about 10 x 5 cm. Disposition: Home. Activity: As tolerated. No heavy lifting. Followup: To follow up in my office in 1 week. Call for appointment [phone]. Wet-to-dry dressing. Normal saline daily. Medications: See orders. LENO/PARISH Voice ID: [id number] Report ID: [id number]
--- NOTE | 2018-10-27 00:10 | OP ---
Date of Procedure: 10/13/2018 Surgeon: Neto Wilson MD Preoperative Diagnosis: Perineal abscess. Postoperative Diagnosis: Perineal complex abscess. Procedure: Incision and drainage of perineal complex abscess 10 x 5 cm. Estimated Blood Loss: Less than 20 cc. Specimen: Pus culture and abscess biopsy. Findings: Abscess with multiple loculations, tunneling and tethering of posterior and lateral. Anesthesia: General plus local. Indications: This is a case of a male, who comes to us with a perineal induration, fluctuance, tende rness. The benefits, alternatives, and risks of incision and drainage of perineal abscess fully expl ained to the patient, which included but are not limited to infection, bleeding, damage to adjacent s tructures, anesthesia complication, recurrence, nonhealing wound, NM, and even . He also unders tands this may not relieve his symptoms. He might need more than one surgical intervention. He unde rstood, signed a consent. Description Of Procedure: The patient was brought to the operating room, placed in supine position. Anesthesia was done without complication. The area of concern was marked by me and the patient prev iously. The patient was placed in lithotomy position. Perineal area was prepped and draped in a abbie rile fashion. A time-out was called. Incision was made over the area leading to a complex abscess c avity that tracked in tunnel anterior, medial, and posterior. All loculations were explored and open ed. The area was profusely irrigated. Hemostasis obtained and the area was packed with wet-to- dry dressing. The patient tolerated the procedure well. The patient was sent to recovery in stable condition. LENO/PARISH Voice ID: [id number] Report ID: [id number]
== END 2018-10-13 13:15 | disposition home or self-care (01) ==
LOC: OR 09:24
PROVIDERS: ATTEND Surgery
PROC: 0H99XZZ Drainage of Perineum Skin, External Approach (ICD-10-PCS; principal; 2018-10-13 10:00)
DX: L02.215 Cutaneous abscess of perineum (principal); E11.9 Type 2 diabetes mellitus without complications; I10 Essential (primary) hypertension; G47.33 Obstructive sleep apnea (adult) (pediatric); F17.200 Nicotine dependence, unspecified, uncomplicated
CPT/HCPCS: 82962; 87070; 87075; 87077; 87185; 87186; 87205; 88304; 88305; 93005; J0690; J2250; J2704; J3010; J7030

== ENCOUNTER 2019-02-24 08:49 | Inpatient (IN) | payer OTHER ==
[2019-02-24] MEDS ORDERED: NA CHLORIDE 0.9% 1,000 ML ONE ×2 (09:38→11:18)
[2019-02-24 10:07] LABS: Absolute Lymphocytes (CBC) 1.1 K/uL (0.7-4.9); Absolute Monocytes 1.1 K/uL (0.1-1.3); Absolute Neutrophil 11.8 K/uL (1.8-8.0); Basophils % 0.4 % (0-1.3); Eosinophils % 0.5 % (0-4.4); Hematocrit 50.4 % (39.6-49.0); MPV 8.1 fL (7.6-11.3); Monocytes % 7.8 % (3.3-12.3); RBC Red Blood Cell Count 5.39 M/uL (4.33-5.43)
[2019-02-24 10:12] LABS: Protime INR 1.23
--- NOTE | 2019-02-24 10:23 | RAD REPORT ---
EXAM DESCRIPTION: Candy Single View02/24/2019 9:58 am CLINICAL HISTORY: Cough COMPARISON: none FINDINGS: Moderate patchy left lung opacities. Right lung appears clear. The heart is normal size IMPRESSION: Moderate patchy left lung opacities likely represent pneumonia. This be followed until i t is clear to help exclude a post obstructive process/underlying mass
--- NOTE | 2019-02-24 10:43 | EDPHYS ---
Physician Documentation [facility] Name: Isaiah Mcgraw Age: 48 yrs Sex: Male : 1970 Arrival Date: 02/24/2019 Time: 08:52 Bed 5 Private MD: Reuben Amanda ED Physician Joe Dickerson HPI: 02/24 10:32 This 48 yrs old Male presents to ER via Ambulatory with complaints of Fever, jr8 Headache, Dizziness. 10:32 The patient reports fever, not measured (subjective). Onset: The symptoms/episode jr8 began/occurred gradually, 5 day(s) ago. Modifying factors: there are no obvious modifying factors. Associated signs and symptoms: Pertinent positives: chills, cough, dizziness, headache. Severity of symptoms: At their worst the symptoms were moderate in the emergency department the symptoms are unchanged. The patient has not experienced similar symptoms in the past. The patient has been recently seen by a physician:. Patient stated that he had sudden onset chills, cough, headache, dizziness, and diaphoresis for the past 5 days. Had started Amoxil at that time. Saw PCP today since it was not getting better. Sent him to ED for further evaluation . Historical: - Allergies: 09: No Known Allergies; tw2 - Home Meds: 09:01 metoprolol tartrate 50 mg Oral tab 1 tab 2 times per day [Active]; lisinopril Oral tw2 [Active]; metformin 500 mg Oral tab 2 tabs 2 times per day [Active]; Invokana 100 mg Oral tab 1 tab once daily [Active]; clopidogrel 75 mg Oral tab 1 tab once daily [Active]; atorvastatin 40 mg Oral tab 1 tab once daily [Active]; aspirin 81 mg Oral TbEC once daily [Active]; - PMHx: 09:01 Diabetes - NIDDM; Hyperlipidemia; Hypertension; Myocardial infarction; tw2 - PSHx: 09: Heart Cath; tw2 - Immunization history:: Adult Immunizations. - Social history:: Smoking status: . - Ebola Screening: : Patient denies travel to an Ebola-affected area in the 21 days before illness onset. ROS: 10:32 Eyes: Negative for injury, pain, redness, and discharge, ENT: Negative for injury, jr8 pain, and discharge, Neck: Negative for injury, pain, and swelling, Cardiovascular: Negative for chest pain, palpitations, and edema, Abdomen/GI: Negative for abdominal pain, nausea, vomiting, diarrhea, and constipation, Back: Negative for injury and pain, MS/Extremity: Negative for injury and deformity, Skin: Negative for injury, rash, and discoloration. 10:32 Constitutional: Positive for chills, fever. 10:32 Respiratory: Positive for cough. 10:32 Neuro: Positive for dizziness, headache, Negative for altered mental status. Exam: 10:32 Constitutional: This is a well developed, well nourished patient who is awake, alert, jr8 and in no acute distress. Eyes: Pupils equal round and reactive to light, extra-ocular motions intact. Lids and lashes normal. Conjunctiva and sclera are non-icteric and not injected. Cornea within normal limits. Periorbital areas with no swelling, redness, or edema. ENT: Nares patent. No nasal discharge, no septal abnormalities noted. Tympanic membranes are normal and external auditory canals are clear. Oropharynx with no redness, swelling, or masses, exudates, or evidence of obstruction, uvula midline. Mucous membranes moist. Neck: Trachea midline, no thyromegaly or masses palpated, and no cervical lymphadenopathy. Supple, full range of motion without nuchal rigidity, or vertebral point tenderness. No Meningismus. Cardiovascular: Regular rate and rhythm with a normal S1 and S2. No gallops, murmurs, or rubs. Normal PMI, no JVD. No pulse deficits. Respiratory: Lungs have equal breath sounds bilaterally, clear to auscultation and percussion. No rales, rhonchi or wheezes noted. No increased work of breathing, no retractions or nasal flaring. Abdomen/GI: Soft, non-tender, with normal bowel sounds. No distension or tympany. No guarding or rebound. No evidence of tenderness throughout. Back: No spinal tenderness. No costovertebral tenderness. Full range of motion. MS/ Extremity: Pulses equal, no cyanosis. Neurovascular intact. Full, normal range of motion. Neuro: Awake and alert, GCS 15, oriented to person, place, time, and situation. Cranial nerves II-XII grossly intact. Motor strength 5/5 in all extremities. Sensory grossly intact. Cerebellar exam normal. Normal gait. 10:32 Skin: Appearance: Color: normal in color, Temperature: cool, Moisture: diaphoretic. Vital Signs: 09:09 BP 131 / 92; Pulse 108; Resp 17; Temp 99(O); Pulse Ox 95% on R/A; Weight 115.67 kg (R); tw2 Pain 5/10; 09:59 BP 111 / 65; Pulse 106; Resp 17; Pulse Ox 95% on R/A; tw2 11:43 BP 113 / 75; Pulse 104; Resp 18; Pulse Ox 96% on R/A; tw2 12:40 BP 130 / 89; Pulse 101; Resp 17; Pulse Ox 99% on R/A; tw2 13:46 BP 142 / 77; Pulse 89; Resp 17; Pulse Ox 100% on R/A; tw2 14:57 BP 148 / 88; Pulse 109; Resp 18; Pulse Ox 99% on R/A; tw2 MDM: 09:03 Patient medically screened. [facility] 10:35 Data reviewed: vital signs, nurses notes, lab test result(s), radiologic studies, plain jr8 films. Data interpreted: Pulse oximetry: on room air is 95 %. Interpretation: acceptable. Counseling: I had a detailed discussion with the patient and/or guardian regarding: the historical points, exam findings, and any diagnostic results supporting the discharge/admit diagnosis, lab results, radiology results, the need for further work-up and treatment in the hospital. 10:50 Physician consultation: Celine Otero MD was called at 10:50, was contacted at 10:50, jr8 regarding admission, to the telemetry unit. consult, patient's condition, and will see patient. 02/24 09:24 Order name: Sed Rate [facility] 02/24 09:24 Order name: C-Reactive Protein [facility] 02/24 09:24 Order name: Basic Metabolic Panel [facility] 02/24 09:24 Order name: Blood Culture Adult (2) [facility] 02/24 09:24 Order name: CBC with Diff; Complete Time: 10:43 [facility] 02/24 09:24 Order name: CPK; Complete Time: 10:50 [facility] 02/24 09:24 Order name: Lactate; Complete Time: 10:30 [facility] 02/24 09:24 Order name: LFT's; Complete Time: 10:50 [facility] 02/24 09:24 Order name: Lipase; Complete Time: 10:50 8 02/24 09:24 Order name: Procalcitonin; Complete Time: 10:43 8 02/24 09:24 Order name: Protime (+inr); Complete Time: 10:15 8 02/24 09:24 Order name: Ptt, Activated; Complete Time: 10:15 8 02/24 09:24 Order name: Troponin (emerg Dept Use Only); Complete Time: 10:50 02/24 09:24 Order name: Urine Microscopic Only 02/24 09:24 Order name: Chest Single View XRAY; Complete Time: 10:30 02/24 09:24 Order name: Accucheck; Complete Time: 10:10 02/24 09:24 Order name: Cardiac monitoring; Complete Time: 09:28 02/24 09:24 Order name: EKG - Nurse/Tech; Complete Time: 09:28 02/24 09:24 Order name: IV Saline Lock - Large Bore; Complete Time: 10:02/24 09:24 Order name: Labs collected and sent; Complete Time: 10:8 02/24 09:24 Order name: O2 Per Protocol; Complete Time: 09:28 8 02/24 09:24 Order name: CT Head Brain wo Cont; Complete Time: 10:45 8 02/24 09:24 Order name: Sedimentation Rate, [place]; Complete Time: 10:43 EDMS 02/24 09:24 Order name: C-Reactive Protein; Complete Time: 10:50 EDMS 02/24 09:24 Order name: Basic Metabolic Panel; Complete Time: 10:50 EDMS 02/24 10:13 Order name: Glucose, Ancillary Testing; Complete Time: 10:15 EDMS 02/24 11:23 Order name: Diet Ada 1800 Mckay; Complete Time: 11:23 tw2 02/24 09:24 Order name: O2 Sat Monitoring; Complete Time: 09:28 Administered Medications: 10:00 Drug: NS 0.9% 1000 ml Route: IV; Rate: 1000 ml; Site: left antecubital; tw2 13:47 Follow up: IV Status: Completed infusion; IV Intake: 1000ml tw2 11:04 Drug: NS 0.9% 1000 ml Route: IV; Rate: 1000 ml; Site: left hand; iw 14:46 Follow up: Response: No adverse reaction; IV Status: Completed infusion; IV Intake: tw2 1000ml 11:05 Drug: LevaQUIN 500 mg Volume: 100 ml; Route: IVPB; Infused Over: 60 mins; Site: left hand; 12:05 Follow up: Response: No adverse reaction; IV Status: Completed infusion tw2 Point of Care Testing: Blood Glucose: 09:44 Blood Glucose: 167 mg/dL; tw2 Ranges: Critical Glucose Levels:Adult <50 mg/dl or >400 mg/dl <40 mg/dl or >180 mg/dl Disposition: 17:18 Co-signature as Attending Physician, Joe Dickerson MD. rn Disposition: 02/24/19 10:42 Hospitalization ordered by Celine Otero for Inpatient Admission. Preliminary diagnosis is Pneumonia due to other specified infectious organisms. - Bed requested for Telemetry/MedSurg (Inpatient). - Status is Inpatient Admission. tw2 - Condition is Stable. - Problem is new. - Symptoms have improved. UTI on Admission? No Signatures: Dispatcher [employer] EDMS Elizabeth Cronin Irene, GAURANG MERLOS Joe Dickerson MD MD rn Roszak, Josh, PA PA jr8 Lovely Lo RN RN tw2 Corrections: (The following items were deleted from the chart) 13:31 10:42 Hospitalization Ordered by Celine Otero MD for Inpatient Admission. Preliminary bd diagnosis is Pneumonia due to other specified infectious organisms. Bed requested for Telemetry/MedSurg (Inpatient). Status is Inpatient Admission. Condition is Stable. Problem is new. Symptoms have improved. UTI on Admission? No. jr8 15:00 13:31 02/24/2019 10:42 Hospitalization Ordered by Celine Otero MD for Inpatient tw2 Admission. Preliminary diagnosis is Pneumonia due to other specified infectious organisms. Bed requested for Telemetry/MedSurg (Inpatient). Status is Inpatient Admission. Condition is Stable. Problem is new. Symptoms have improved. UTI on Admission? No. bd
--- NOTE | 2019-02-24 10:43 | ER ---
Nurse's Notes [facility] Name: Isaiah Mcgraw Age: 48 yrs Sex: Male : 1970 Arrival Date: 02/24/2019 Time: 08:52 Bed 5 Private MD: Reuben Amanda Diagnosis: Pneumonia due to other specified infectious organisms Presentation: 02/24 08:59 Risk Assessment: Do you want to hurt yourself or someone else? Patient reports no tw2 desire to harm self or others. 09:07 Presenting complaint: Patient states: i started having a headache since Friday about tw2 noon, i was feeling hot then cold, i took some amoxicillin thinking i could beat whatever this was i thought maybe the flu, i have been running fever, yesterday it was 102.7 , i took tylenol at 720 this morning, i also am having some blurred vision and dizziness that comes and goes. Transition of care: patient was not received from another setting of care. Onset of symptoms was February 24, 2019. Initial Sepsis Screen: Does the patient meet any 2 criteria? No. Patient's initial sepsis screen is negative. Does the patient have a suspected source of infection? No. Patient's initial sepsis screen is negative. Care prior to arrival: Medication(s) given: Tylenol. 09:07 Method Of Arrival: Ambulatory tw 09:07 Acuity: LASHELL 3 tw2 Triage Assessment: 09:10 Headache History: The patient has had previous headaches and this one is similar to tw2 previous episodes. General: Appears in no apparent distress. Behavior is calm, cooperative, appropriate for age. Pain: Pain currently is 5 out of 10 on a pain scale. Pain began 2-3 days ago. Also complains of dizziness that comes and goes. Neuro: Reports headache. Derm: Skin is diaphoretic. Historical: - Allergies: 09: No Known Allergies; tw2 - Home Meds: 09: metoprolol tartrate 50 mg Oral tab 1 tab 2 times per day [Active]; lisinopril Oral tw2 [Active]; metformin 500 mg Oral tab 2 tabs 2 times per day [Active]; Invokana 100 mg Oral tab 1 tab once daily [Active]; clopidogrel 75 mg Oral tab 1 tab once daily [Active]; atorvastatin 40 mg Oral tab 1 tab once daily [Active]; aspirin 81 mg Oral TbEC once daily [Active]; - PMHx: 09:01 Diabetes - NIDDM; Hyperlipidemia; Hypertension; Myocardial infarction; tw2 - PSHx: 09:01 Heart Cath; tw2 - Immunization history:: Adult Immunizations. - Social history:: Smoking status: . - Ebola Screening: : Patient denies travel to an Ebola-affected area in the 21 days before illness onset. Screenin:59 Abuse screen: Denies threats or abuse. Nutritional screening: No deficits noted. tw2 Tuberculosis screening: No symptoms or risk factors identified. Fall Risk None identified. Assessment: 09:11 General: Appears in no apparent distress. Behavior is calm, cooperative, appropriate tw2 for age. Pain: Complains of pain in headache. Neuro: Level of Consciousness is awake, alert, obeys commands, Oriented to person, place, time, situation, Reports dizziness, headache. Cardiovascular: Reports diaphoresis, Denies chest pain, shortness of breath, Heart tones S1 S2 Capillary refill < 3 seconds. Respiratory: Airway is patent Respiratory effort is even, unlabored, Respiratory pattern is regular, symmetrical, Breath sounds are clear bilaterally. GI: No signs and/or symptoms were reported involving the gastrointestinal system. Abdomen is round non-distended, Bowel sounds present X 4 quads. : No signs and/or symptoms were reported regarding the genitourinary system. EENT: No signs and/or symptoms were reported regarding the EENT system. Derm: Skin is diaphoretic. Musculoskeletal: Range of motion: intact in all extremities. 09:59 Reassessment: Patient appears in no apparent distress at this time. Patient and/or tw2 family updated on plan of care and expected duration. Pain level reassessed. Patient is alert, oriented x 3, equal unlabored respirations, skin warm/dry/pink. 10:37 Reassessment: provider at bedside at this time. tw2 11:43 Reassessment: Patient appears in no apparent distress at this time. Patient and/or tw2 family updated on plan of care and expected duration. Pain level reassessed. 14:58 Reassessment: Patient appears in no apparent distress at this time. Patient and/or tw2 family updated on plan of care and expected duration. Pain level reassessed. Patient is alert, oriented x 3, equal unlabored respirations, skin warm/dry/pink. Vital Signs: 09:09 BP 131 / 92; Pulse 108; Resp 17; Temp 99(O); Pulse Ox 95% on R/A; Weight 115.67 kg (R); tw2 Pain 5/10; 09:59 BP 111 / 65; Pulse 106; Resp 17; Pulse Ox 95% on R/A; tw2 11:43 BP 113 / 75; Pulse 104; Resp 18; Pulse Ox 96% on R/A; tw2 12:40 BP 130 / 89; Pulse 101; Resp 17; Pulse Ox 99% on R/A; tw2 13:46 BP 142 / 77; Pulse 89; Resp 17; Pulse Ox 100% on R/A; tw2 14:57 BP 148 / 88; Pulse 109; Resp 18; Pulse Ox 99% on R/A; tw2 ED Course: 08:52 Patient arrived in ED. rg4 08:52 Reuben Amanda MD is Private Physician. rg4 08:59 Lovely Lo RN is Primary Nurse. tw2 08:59 Arm band placed on. tw2 08:59 Bed in low position. Call light in reach. monitoring analyst on. Pulse ox on. NIBP on. tw2 09:01 Branden Matute PA is PHCP. jr8 09:01 Joe Dickerson MD is Attending Physician. jr8 09:09 Triage completed. tw2 09:40 Radiology exam delayed due to IV insertion attempt and/or patient not having jg6 appropriate IV at this time. 09:51 Chest Single View XRAY In Process Unspecified. EDMS 09:51 Missed attempt(s): 20 gauge in right antecubital area. blood collected. Bleeding tw2 controlled, band aid applied, catheter tip intact. 10:00 Inserted saline lock: 22 gauge in left antecubital area, using aseptic technique. jb1 10:26 CT Head Brain wo Cont In Process Unspecified. EDMS 10:37 IV discontinued, intact, bleeding controlled, No redness/swelling at site. Pressure tw2 dressing applied, infiltration noted to left ac. 10:42 Celine Otero MD is Hospitalizing Provider. jr8 13:45 Awaiting: attempted to call report, per erin they will have to call me back they were tw2 just told by travis prado that they were getting a patient and [facility] is getting 2 patients. 14:46 No provider procedures requiring assistance completed. iw Administered Medications: 10:00 Drug: NS 0.9% 1000 ml Route: IV; Rate: 1000 ml; Site: left antecubital; tw2 13:47 Follow up: IV Status: Completed infusion; IV Intake: 1000ml tw2 11:04 Drug: NS 0.9% 1000 ml Route: IV; Rate: 1000 ml; Site: left hand; iw 14:46 Follow up: Response: No adverse reaction; IV Status: Completed infusion; IV Intake: tw2 1000ml 11:05 Drug: LevaQUIN 500 mg Volume: 100 ml; Route: IVPB; Infused Over: 60 mins; Site: left iw hand; 12:05 Follow up: Response: No adverse reaction; IV Status: Completed infusion tw2 Point of Care Testing: Blood Glucose: 09:44 Blood Glucose: 167 mg/dL; tw2 Ranges: Intake: 13:47 IV: 1000ml; Total: 1000ml. tw2 14:46 IV: 1000ml; Total: 2000ml. tw2 Outcome: 10:42 Decision to Hospitalize by Provider. oriana 14:46 Admitted to Med/surg accompanied by tech, family with patient, via wheelchair, room iw 425, Report called to RN 14:46 Condition: good 14:46 Discharge instructions given to patient, Instructed on the need for admit, Demonstrated understanding of instructions. 15:00 Patient left the ED. tw2 Signatures: Dispatcher [employer] EDMoise Downing jb1 Kellee Piedra RN RN iw Branden Matute PA PA jr8 Lovely Lo RN RN tw2 Christy Puga Jessica jg6
--- NOTE | 2019-02-24 10:45 | RAD REPORT ---
EXAM DESCRIPTION: CT - Head Brain Wo Cont - 02/24/2019 10:26 am CLINICAL HISTORY: Headache COMPARISON: None. TECHNIQUE: Computed axial tomography of the head was obtained. IV contrast was not requested. All CT scans are performed using dose optimization technique as appropriate and may include automated exposure control or mA/KV adjustment according to patient size. FINDINGS: An intracranial bleed is not seen . The ventricles are normal in caliber. No extra-axial fluid collection is noted. Fluid within the sinuses/ mastoids is not seen. IMPRESSION: No acute intracranial abnormality is seen. If patient's symptoms persist MRI of the bra in would be recommended.
[2019-02-24 10:49] LABS: ALT/SGPT 30 U/L (12-78); AST/SGOT 23 U/L (15-37); Albumin 3.5 g/dL (3.4-5.0); Alkaline Phosphatase 92 U/L (45-117); BUN Blood Urea Nitrogen 10 mg/dL (7-18); Bicarbonate 24 mmol/L (21-32); Bilirubin Direct 0.4 mg/dL (0-0.2); Bilirubin Total 1.2 mg/dL (0.2-1.0); C-Reactive Protein > 190.00 mg/L (<3.00); Creatine Phosphokinase 204 U/L (39-308); Glucose Level 167 mg/dL (74-106); Lipase 148 U/L (73-393); Potassium 3.5 mmol/L (3.5-5.1); Protein, Total 8.7 g/dL (6.4-8.2); Sodium Level 135 mmol/L (136-145); Troponin (Emerg Dept Use Only) < 0.02 ng/mL (0.0-0.045)
[2019-02-24] MEDS ORDERED: Levofloxacin500mg IV 500 MG/100 ML BAG IV ONE ×2 (10:49→11:18)
[2019-02-24] MEDS ORDERED: GLUCAGON 1 MG/VIAL IM PRN (15:33)
[2019-02-24] MEDS ORDERED: D50W 25 GM/50 ML SYRINGE IV PRN (15:33)
[2019-02-24] MEDS ORDERED: ONDANSETRON 4 MG/2 ML VIAL IV PRN (15:33)
[2019-02-24] MEDS ORDERED: ALBUTEROL 2.5 MG/3 ML NEB SOL NEB PRN (15:33)
[2019-02-24 16:18] VITALS: BMI 35.9
[2019-02-24] MEDS: INSULIN -REGULAR HUMAN 50 UNIT/0.5 ML ML SQ SCH ×2 (16:30→21:00)
[2019-02-24] MEDS: NA CHLORIDE 0.9% 1,000 ML IV SCH (16:56)
[2019-02-24] MEDS: ACETAMINOPHEN 500 MG TAB PO PRN (17:15)
[2019-02-24] MEDS ORDERED: POTASSIUM CL SA 10 MEQ TAB PO ONE (17:33)
[2019-02-24] MEDS: ATORVASTATIN 40 MG TAB PO SCH (20:34)
[2019-02-24] MEDS: METOPROLOL TAR 50 MG TAB PO SCH (20:35)
[2019-02-24 21:39] LABS: Urine Bacteria <20 /HPF (NONE SEEN); Urine Culture Reflex Order REFLEXED; Urine RBC <5 /HPF (NONE SEEN); Urine Yeast PRESENT (NONE SEEN)
[2019-02-25] MEDS: NA CHLORIDE 0.9% 1,000 ML IV SCH ×4 (01:33→22:46)
--- NOTE | 2019-02-25 03:37 | HP ---
Date of Admission: 02/24/2019 Primary Care Physician: Dr. Reuben Amanda. Chief Complaint: Headache and failed outpatient treatment for pneumonia. History Of Present Illness: The patient is a 48-year-old male with past medical history of hypertens ion, hyperlipidemia, diabetes, history of GA, who was in his usual state of health until 3 days prior to admission when the patient had sudden onset of headache which was mainly in the posterior lobe, o ccipital area, radiating to the front along with some dizziness and headache. The patient did have s ome chills, but no significant cough or sputum production, no shortness of breath. The patient tried some hnvy-fgb-iziggnr medications for his headache, did not improve, therefore came in to see his [facility] physician. The patient started amoxicillin on his own for the past several days and when he was seen by his PCP, he was referred to the ER for further evaluation. In the ER, he was found to have a white count of 14,000. He was tachycardic, tachypneic. Blood pressure was stable. [facility] imaging study showed pneumonia. Therefore, the patient was referred for admission. Head CT sc an was negative. When seen in the ER, he was awake, alert, oriented x3, in some mild distress. Past Medical History: Hypertension; hyperlipidemia; history of GA; diabetes, non-insulin requiring. Surgical History: Heart cath, but no stents. Medications: List reviewed. Allergies: NO KNOWN DRUG ALLERGIES. Social History: The patient denies any cigarette smoking or alcohol use. No illicit drug use. The patient does dip tobacco on a regular basis. 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 Family History: Heart disease, diabetes runs in the family. Mother also has chronic kidney disease. Review of Systems: An 11-point system reviewed, negative except as per HPI. Physical Examination: Vital Signs: Blood pressure 131/92, pulse 108, respirations 18, temperature 99, O2 95% on room air. General: Awake, alert, oriented x3, some mild distress, ill-appearing male. HEENT: Normocephalic, atraumatic. PERRLA. EOMI. Dry mucous membranes. Oropharynx is clear. Conj unctivae are anicteric. Poor dentition. Neck: Supple. No JVD. Trachea midline. CV: S1, S2. Sinus tachycardia. Peripheral pulses present. No murmurs. Respiratory: Diminished breath sounds, left worse than right. No use of accessory muscles, stridor. The patient is slightly tachypneic. Gastrointestinal: Abdomen is soft, nontender, nondistended. Positive bowel sounds. No guarding or rigidity. Extremities: No clubbing, cyanosis, or edema. No calf tenderness. Neuro: Cranial nerves 2-12 intact grossly. No focal neurological deficit. Speech is normal. Skin: No rashes. Normal skin turgor. Psych: Mood is okay. Affect is full. Insight and judgment are good. Laboratory Data: Sodium 135, potassium 3.5, chloride 102, CO2 24, BUN 10, creatinine 0.84, glucose 1 67, lactate 1.5, calcium 9.3. CRP greater than 190. Troponin less than 0.02. Procalcitonin 0.22. INR 1.23. WBC 14.2, H and H 17.5 and 50.4, platelets 235, neutrophils 83%. UA is pending. Imaging Studies: Chest x-ray shows moderate patchy left lung opacities, likely represent pneumonia. Head CT scan negative for any acute intracranial abnormalities. Assessment And Plan: A 48-year-old male with: 1.Left lower lobe pneumonia. Failed outpatient treatment. We will start on Levaquin. We will obta in blood cultures and sputum cultures. Supplemental oxygenation as needed. 2.Headache, unclear etiology. We will provide analgesia. The patient does have some associated diz ziness and lightheadedness may be related to positional vertigo versus orthostatic hypotension. We w ill have PT work with the patient and check orthostatic vital signs. 3.Diabetes mellitus, type 2, non-insulin requiring. We will start on sliding scale insulin and mirza tor blood glucose levels. 4.Essential hypertension, stable. We will resume home medications as appropriate. 5.History of GA. The patient is on blood thinners. We will continue home medications. No chest pa in. Troponins negative. 6.Mixed hyperlipidemia. Continue statin. 7.Obesity, BMI 35.9. 8.GI and DVT prophylaxis addressed. Admit the patient to Med/Surg, place as inpatient. Length of stay, greater than 2 midnights. JOE Voice ID: [id number]
[2019-02-25 04:52] LABS: Absolute Lymphocytes (CBC) 1.9 K/uL (0.7-4.9); Absolute Monocytes 1.1 K/uL (0.1-1.3); Absolute Neutrophil 6.5 K/uL (1.8-8.0); Basophils % 0.3 % (0-1.3); Eosinophils % 1.8 % (0-4.4); Hematocrit 41.7 % (39.6-49.0); Lymphocytes % 19.6 % (15.3-44.8); MPV 7.7 fL (7.6-11.3); Monocytes % 11.7 % (3.3-12.3); RBC Red Blood Cell Count 4.47 M/uL (4.33-5.43)
[2019-02-25 05:12] LABS: ALT/SGPT 22 U/L (12-78); AST/SGOT 18 U/L (15-37); Albumin 2.7 g/dL (3.4-5.0); Alkaline Phosphatase 68 U/L (45-117); BUN Blood Urea Nitrogen 8 mg/dL (7-18); Bicarbonate 26 mmol/L (21-32); Bilirubin Total 0.6 mg/dL (0.2-1.0); Glucose Level 114 mg/dL (74-106); Potassium 3.6 mmol/L (3.5-5.1); Protein, Total 6.8 g/dL (6.4-8.2); Sodium Level 141 mmol/L (136-145)
[2019-02-25] MEDS: INSULIN -REGULAR HUMAN 50 UNIT/0.5 ML ML SQ SCH ×4 (07:30→21:00)
[2019-02-25] MEDS: Levofloxacin 750mg IV 750 MG/150 ML BAG IV SCH (08:30)
[2019-02-25] MEDS: METOPROLOL TAR 50 MG TAB PO SCH (08:30)
[2019-02-25] MEDS: ENOXAPARIN 40 MG/0.4 ML SQ SCH (08:40)
[2019-02-25] MEDS: LISINOPRIL 20 MG TAB PO SCH (08:41)
[2019-02-25] MEDS: CLOPIDOGREL 75 MG TABLET PO SCH (08:41)
[2019-02-25] MEDS: ASPIRIN EC 81 MG TAB PO SCH (08:41)
[2019-02-25] MEDS: ACETAMINOPHEN 500 MG TAB PO PRN ×2 (08:42→16:54)
[2019-02-25] MEDS ORDERED: POTASSIUM CL SA 10 MEQ TAB PO ONE (09:00)
[2019-02-25 10:54] LABS: Urine Appearance CLEAR; Urine Blood 2+ (NEG); Urine Color DK YELLOW; Urine Glucose NEGATIVE (NEG); Urine Protein 1+ (NEG); Urine Specific Gravity 1.025 (1.005-1.030)
[2019-02-25 11:07] LABS: Urine Bilirubin NEGATIVE (NEG)
[2019-02-25 11:08] LABS: Urine Microscopic Reflex ORDER UMIC
[2019-02-25 11:15] LABS: Urine Bacteria <20 /HPF (NONE SEEN); Urine Culture Reflex Order NOT NEEDED; Urine Mucus 1+ /HPF (NONE SEEN)
--- NOTE | 2019-02-25 20:38 | PN ---
Date of Progress Note: 02/25/2019 History: The patient seen and examined. Chart reviewed and case discussed with RN and Dr. Amanda. The patient continues to have sweats and has been afebrile, did have low temperature at 96.6. The delta nieves states his headache is still present, however, improved. Medications: List reviewed. Physical Examination: Vital Signs: Temperature 96.7, T-max was 99, heart rate 79, blood pressure 112/77, respirations 20, O2 97% on room air. General: Awake, alert, oriented x3, in some mild distress, diaphoretic male. Obese. BMI 35. Neck: Supple. No nuchal rigidity. No signs of meningismus. CV: S1, S2. Regular rate and rhythm. Peripheral pulses present. Respiratory: Moving air well bilaterally. No wheezing. Some diminished breath sounds on the base. Gastrointestinal: Abdomen is soft, nontender, nondistended. Positive bowel sounds. Extremities: No clubbing, cyanosis, or edema. Neurologic: Nonfocal. Laboratory Data: Sodium 141, potassium 3.6, chloride 108, CO2 26, BUN 8, creatinine 0.67, glucose 11 4, lactate 1.1, calcium 8.4, albumin 2.7. WBC 9.7, H and H 14.5 and 41.7, platelets 213. Urine cult ures pending. UA shows negative nitrite, negative leukocyte esterase, 10-20 rbc's, less than 20 bact eria, yeast present. Sputum culture pending. Assessment: A 48-year-old male with: 1.Left lower lobe pneumonia, failed outpatient treatment. Continue IV antibiotics. Cultures pendin g at this time. 2.Headache, unclear etiology, improving, however, not completely resolved. No signs of meningitis. No photophobia or phonophobia. No nuchal rigidity. 3.Hypothermia with diaphoresis, unclear etiology, may be autonomic dysfunction. 4.Diabetes mellitus type 2, non-insulin requiring. We will continue sliding scale insulin and monit or blood glucose levels. 5.Essential hypertension, stable. 6.History of myocardial infarction. We will continue aspirin, stable. No chest pain. 7.Mixed hyperlipidemia. Continue statin. 8.Obesity, BMI 35.9. 9.Nicotine dependence with chewing tobacco, counseled. Plan: Continue IV antibiotics. Follow up on culture results. Likely discharge in the next 24-48 ho urs depending on clinical response. Ambulate. Check orthostatic vital signs. /MODSteffanie Voice ID: [id number] Report ID: [id number]
[2019-02-25 21:35] VITALS: O2SAT 96
[2019-02-25] MEDS: ATORVASTATIN 40 MG TAB PO SCH (22:28)
[2019-02-26 06:39] LABS: Absolute Lymphocytes (CBC) 1.9 K/uL (0.7-4.9); Absolute Monocytes 0.6 K/uL (0.1-1.3); Absolute Neutrophil 4.1 K/uL (1.8-8.0); Basophils % 0.6 % (0-1.3); Eosinophils % 3.6 % (0-4.4); Hematocrit 40.9 % (39.6-49.0); Lymphocytes % 26.9 % (15.3-44.8); MPV 7.7 fL (7.6-11.3); RBC Red Blood Cell Count 4.35 M/uL (4.33-5.43)
[2019-02-26 06:49] LABS: ALT/SGPT 24 U/L (12-78); AST/SGOT 21 U/L (15-37); Albumin 2.7 g/dL (3.4-5.0); Alkaline Phosphatase 68 U/L (45-117); BUN Blood Urea Nitrogen 8 mg/dL (7-18); Bicarbonate 28 mmol/L (21-32); Bilirubin Total 0.4 mg/dL (0.2-1.0); Glucose Level 120 mg/dL (74-106); Protein, Total 6.4 g/dL (6.4-8.2); Sodium Level 142 mmol/L (136-145)
[2019-02-26] MEDS: INSULIN -REGULAR HUMAN 50 UNIT/0.5 ML ML SQ SCH ×2 (07:30→12:57)
[2019-02-26] MEDS: NA CHLORIDE 0.9% 1,000 ML IV SCH (07:33)
[2019-02-26] MEDS: ASPIRIN EC 81 MG TAB PO SCH (10:06)
[2019-02-26] MEDS: METOPROLOL TAR 50 MG TAB PO SCH (10:06)
[2019-02-26] MEDS: Levofloxacin 750mg IV 750 MG/150 ML BAG IV SCH (10:07)
[2019-02-26] MEDS: CLOPIDOGREL 75 MG TABLET PO SCH (10:07)
[2019-02-26] MEDS: LISINOPRIL 20 MG TAB PO SCH (10:07)
[2019-02-26] MEDS: ENOXAPARIN 40 MG/0.4 ML SQ SCH (10:07)
[2019-02-26 12:33] VITALS: BP 145/87; TEMP 97
--- NOTE | 2019-02-27 05:01 | DS ---
Date of Discharge: 02/26/2019 Admitting Diagnoses: 1.Left lower lobe pneumonia. 2.Headache. 3.Diabetes mellitus type 2, non-insulin requiring. 4.Essential hypertension. 5.History of myocardial infarction. 6.Mixed hyperlipidemia. 7.Obesity, BMI 35.9. Discharge Diagnoses: 1.Left lower lobe pneumonia, failed outpatient treatment, improved. 2.Headache, resolved. 3.Hypothermia with diaphoresis, unclear etiology. 4.Diabetes mellitus type 2, vox-sbstpnu-yldmheemb with hyperglycemia. 5.Essential hypertension. 6.History of myocardial infarction. 7.Mixed hyperlipidemia. 8.Obesity, BMI 35.9. 9.Nicotine dependence with chewing tobacco. Hospital Course: The patient is a 48-year-old male, comes in with failed outpatient treatment for pn eumonia, was seen by his primary care physician, found to have headache, was sent in for further eval uation. On chest x-ray, he was found to have left lower lobe pneumonia. White count of 14,000. He was tachycardic and tachypneic. The patient did also have some hypothermia and diffuse diaphoresis. Head CT scan was done, which was negative for any acute abnormalities. He was started on IV antibio tics and cultures were obtained. The patient responded well to antibiotics. His white blood cell co unt normalized. His blood cultures did not show any growth. Sputum cultures were also negative. Th e patient was then feeling well. His symptoms had improved. He was not hypoxic, not requiring any s upplemental oxygen. No signs of sepsis. The patient was no longer tachycardic or tachypneic. He wa s afebrile. Temperature was back up to 97.8. The patient was then cleared for discharge and was sen t home in a stable condition. Activity: As tolerated. Medications: As per medication reconciliation list. Followup: Follow up with primary care physician in 2 to 3 days. Return to ER for worsening conditio n. Physical Examination: General: Awake, alert, and oriented x3, not in any acute distress, obese male. CV: S1, S2. Regular rate and rhythm. Peripheral pulses present. Respiratory: Moving air well bilaterally. No wheezing. Gastrointestinal: Abdomen is soft, nontender, nondistended. Positive bowel sounds. Extremities: No clubbing, cyanosis, or edema. Neurologic: Nonfocal. Total time spent discharging the patient was 33 minutes. JOE Voice ID: [id number] Report ID: [id number]
== END 2019-02-26 13:07 | disposition home or self-care (01) | DRG 195 ==
LOC: ER 08:49 → ERHOLD 11:36 → 4TH 14:48
PROVIDERS: ADMIT Family Medicine; ATTEND Family Medicine
DX: J18.9 Pneumonia, unspecified organism (principal); R51 Headache; T68.XXXA Hypothermia, initial encounter; R61 Generalized hyperhidrosis; E11.65 Type 2 diabetes mellitus with hyperglycemia; I10 Essential (primary) hypertension; I25.2 Old myocardial infarction; E78.2 Mixed hyperlipidemia; E66.9 Obesity, unspecified; Z68.35 Body mass index [BMI] 35.0-35.9, adult; F17.220 Nicotine dependence, chewing tobacco, uncomplicated
CPT/HCPCS: 36415; 70450; 71045; 80048; 80053; 80076; 81003; 81015; 82550; 82962; 83605; 83690; 84145; 84484; 85025; 85610; 85652; 85730; 86140; 87040; 87070; 87086; 87088; 87205; 94760; 96361; 96365; 99285; J1650; J7030